=== PATIENT | male | born 1955 | race Caucasian/White ===

== ENCOUNTER 2020-11-22 09:17 | Emergency (ER) | payer MEDICARE, BC ==
[~2020-11-22] VITALS: Ht 180.3 cm; Wt 112.0 kg
[~2020-11-22 09:17] MED LIST: CELEBREX200 MG PO; FENOFIBRATE145 MG PO; FISH OIL 1,0001 EAC2 PO; GLIMEPIRIDE4 MG PO; LANTUS 3ML100 UNITS/ SQ; LISINOPRIL10 MG PO; METFORMIN HCL1000 MG PO; PIOGLITAZONE30 MG PO
[2020-11-22 09:43] LABS: BASOPHILS # (AUTO) 0.1 (0.0-0.1); BASOPHILS % 0.7 % (0.0-1.0); EOSINOPHILS # (AUTO) 0.3 (0.0-0.4); EOSINOPHILS % 1.9 % (0.0-6.0); HEMATOCRIT 41.8 % (38.2-49.6); HEMOGLOBIN 13.9 g/dL (14.0-18.0); LYMPHOCYTES # (AUTO) 2.3 (1.0-3.2); LYMPHOCYTES % 17.4 % (18.0-39.1); MEAN CORPUSCULAR HEMOGLOBIN 30.8 pg (28-32); MEAN CORPUSCULAR HGB CONC 33.3 g/dL (31-35); MEAN CORPUSCULAR VOLUME 92.5 fL (81-99); MONOCYTES # (AUTO) 0.8 (0.2-0.8); MONOCYTES % 5.6 % (4.4-11.3); NEUTROPHILS # (AUTO) 9.9 (2.1-6.9); NEUTROPHILS % 73.8 % (38.7-80.0); PLATELET COUNT 317 x10e3/uL (140-360); RED BLOOD COUNT 4.52 x10e6/uL (4.3-5.7); RED CELL DISTRIBUTION WIDTH 13.2 % (11.7-14.4)
[2020-11-22 10:06] LABS: INR 0.86; PROTHROMBIN TIME 11.9 seconds (11.9-14.5)
[2020-11-22 10:07] LABS: PARTIAL THROMBOPLASTIN TIME 35.3 seconds (23.8-35.5)
[2020-11-22 12:02] LABS: ALBUMIN 3.6 g/dL (3.5-5.0); ALBUMIN/GLOBULIN RATIO 0.9 (0.8-2.0); ANION GAP 17.3 mmol/L (8-16); CALCIUM 9.1 mg/dL (8.4-10.2); CREATININE, SERUM 1.12 mg/dL (0.72-1.25); POTASSIUM 4.3 mmol/L (3.5-5.1)
== END 2020-11-22 11:46 | disposition home or self-care (01) ==
LOC: ER 10:24
DX: R53.1 Weakness (principal); M79.642 Pain in left hand; M79.641 Pain in right hand; E11.65 Type 2 diabetes mellitus with hyperglycemia; I10 Essential (primary) hypertension
CPT/HCPCS: 36415; 70450; 80053; 84484; 85025; 85610; 85730; 93005; 99283